=== PATIENT | female | born 1960 | race Caucasian/White ===

== ENCOUNTER → 2022-01-21 11:35 | Outpatient (CLI) | payer OTHER, SELFPAY ==
[2022-01-21 12:39] LABS: COVID19 -Nasal RAPID Negative (Negative)
== END ==
PROVIDERS: PCP Family Medicine; Visit Provider Surgery
DX: Z20.822 Contact with and (suspected) exposure to COVID-19 (principal); Z01.812 Encounter for preprocedural laboratory examination
CPT/HCPCS: 87635; C9803

== ENCOUNTER 2022-01-22 10:42 | Day surgery (SDC) | payer OTHER, SELFPAY ==
--- NOTE | 2022-01-22 | PATH_ITS ---
[facility] Accession Number: [id number] . 01 Material submitted: . PART A: colon - CECAL POLYP PART B: colon - SIGMOID COLON POLYP . 01 Clinical history: . SCREENING COLONOSCOPY . 01 Diagnosis: A. Cecum, Polyp, Biopsy: Sessile serrated adenoma. . B. Sigmoid Colon, Polyp, Biopsy: Tubular adenoma. Hyperplastic polyp. MRV 01/24/2022 1124 Local . 01 Electronically signed: . Jacque Castro MD, Pathologist NPI- [id number] . 01 Gross description: . Part A: CECAL POLYP: Received in formalin is 1 fragment(s) of weeks, soft tissue measuring 1.0 x 0.5 x 0.1 cm submitted entirely in 1 cassette(s) Part B: SIGMOID COLON POLYP: Received in formalin are multiple fragment(s) of weeks, soft tissue measuring 2.0 x 0.7 x 0.1 cm in aggregate submitted entirely in 1 cassette(s) /CPE 01/23/2022 0650 Local . 01 Pathologist provided ICD-10: D12.2, D12.5 . 01 CPT . 778377, 242179 Performed at: 01 [facility] [address] [place] [address] [address], [place], [place] [id number] MD Dewey Johnson MD Phone: [phone]
[2022-01-22 11:36] VITALS: BP 113/71; PULSE 94; RESP 20; TEMP 36.1; O2SAT 97; BMI 34.5
[2022-01-22] MEDS: LACTATED RINGERS 1,000 ML 150 ML IV (11:53)
--- NOTE | 2022-01-22 13:09 | PM.HP.1 ---
History of Present Illness History of Present Illness Chief complaint: SCREENING COLONOSCOPY Patient History Family & Social History Social History: household members spouse Tobacco & Substance use: Smoking Status Former smoker alcohol intake frequency holiday/special occasion Substance Use Type does not use Meds Home Medications and Allergies Home Medications Medication Instructions Recorded Confirmed Type atorvastatin 20 mg tablet 20 mg 1XD 01/22/22 01/22/22 History atorvastatin 20 mg tablet 20 mg PO DAILY 01/22/22 01/22/22 History bupropion HCl 150 mg 24 hr tablet, 150 mg PO 1XD 01/22/22 01/22/22 History extended release cetirizine 10 mg tablet 10 mg 1XD 01/22/22 01/22/22 History estradiol 1 mg tablet 1 mg 1XD 01/22/22 01/22/22 History levothyroxine 50 mcg tablet 50 mcg 1XD 01/22/22 01/22/22 History (Synthroid) levothyroxine 50 mcg tablet 50 mcg PO DAILY 01/22/22 01/22/22 History (Synthroid) losartan 100 25 tab 1XD 01/22/22 01/22/22 History mg-hydrochlorothiazide 25 mg tablet meloxicam 15 mg tablet 15 mg 1XD 01/22/22 01/22/22 History metformin 500 mg tablet,extended 1,000 mg PO 1-2XD 01/22/22 01/22/22 History release 24 hr omeprazole 20 mg capsule,delayed 20 mg PO DAILY 01/22/22 01/22/22 History release Allergies Allergy/AdvReac Type Severity Reaction Status Date / Time aspirin AdvReac Intermediate broken Verified 01/22/22 11:27 blood vessels lisinopril AdvReac Intermediate Cough Verified 01/22/22 11:27 gold AdvReac Intermediate Rash Uncoded 01/22/22 11:27 Review of Systems Review of Systems Narrative: Negative Exam Vital Signs (past 8 hours): - 01/22/22 11:36 Temperature 97 F L Pulse Rate 94 H Respiratory Rate 20 Blood Pressure 113/71 Pulse Oximetry 97 Oxygen Delivery Method Room Air Oxygen Delivery Method Room Air Narrative Exam Narrative: Awake alert and oriented x3, pupils equal round reactive to light, oropharynx clear, heart regular rate and rhythm, lungs clear to auscultation bilaterally, abdomen nontender and nondistended, extremities without edema, no gross neurologic deficits noted Assessment & Plan Assessment & Plan narrative: Colon cancer screening for colonoscopy Time Spent With Patient Critical Care time: I spent a total of [] minutes of critical care time on this patient's care today; this time is exclusive of procedural time.
--- NOTE | 2022-01-22 13:47 | PM.OP.COLON ---
Operative Date/Time/Diagnoses Date of procedure: 01/22/22 Procedure & Clinicians Study performed: Colonoscopy with snare polypectomy Indications: Colon cancer screening. Personal history of colon polyps. Family history of colon polyps. Last colonoscopy was done in 2012. Procedure Notes Procedure in detail: Prior to the procedure, history and physical was performed, and patient medications and allergies were reviewed. Preprocedure nursing history and assessment was reviewed. Patient identification and proposed procedure were verified by the physician and nurse in the procedure room. The physical status of the patient was reassessed after the procedure. After informed consent was obtained including risks, benefits, and alternatives, the scope was passed under direct vision. Throughout the procedure, the patient's blood pressure, pulse, and oxygen saturations were monitored continuously. The colonoscope was introduced through the anus and advanced to the cecum as identified by the appendiceal orifice and ileocecal valve. The patient tolerated the procedure well. Bowel prep was deemed adequate to detect polyps greater than 5 mm. GERALD and perianal examinations were unremarkable. Retroflexion in the rectum was unrevealing. A 4 mm sessile polyp was removed from the cecum using cold snare and retrieved. Two 4 mm sessile polyps were removed from the sigmoid colon using a cold snare, 1 of 2 polyps were retrieved Impression: Three 4 mm polyps removed from the sigmoid colon and cecum, partial retrieval Complications: other (EBL minimal. No complications) Post-procedure Plan for aftercare: Follow-up pathology results Repeat colonoscopy at a date to be determined based on pathology results Resume home medications Resume previous diet Patient has a contact number available for emergencies. The signs and symptoms of potential delayed complications were discussed with the patient. Return to normal activities tomorrow. Written discharge instructions were provided to the patient. Discharge home with escort
[2022-01-22 13:50] VITALS: BP 122/75; PULSE 94; RESP 19; TEMP 36; O2SAT 99
[2022-01-22 13:55] VITALS: BP 109/69; PULSE 92; RESP 19; O2SAT 100
[2022-01-22 14:00] VITALS: BP 117/80; PULSE 83; RESP 19; O2SAT 100
[2022-01-22 14:05] VITALS: BP 122/73; PULSE 77; RESP 15; O2SAT 99
[2022-01-22 14:08] VITALS: BP 112/66; PULSE 77; RESP 15; O2SAT 99
== END 2022-01-22 14:20 | disposition home or self-care (01) ==
PROVIDERS: PCP Nurse Practitioner Family; Referring Provider Internal Medicine; Visit Provider Internal Medicine
PROC: 0DJD8ZZ Inspection of Lower Intestinal Tract, Via Natural or Artificial Opening Endoscopic (ICD-10-PCS; CPT 45378; principal; 2022-01-22 12:30)
DX: Z12.11 Encounter for screening for malignant neoplasm of colon (principal); D12.0 Benign neoplasm of cecum; D12.5 Benign neoplasm of sigmoid colon; Z86.010 Personal history of colon polyps; Z83.71 Family history of colonic polyps; Z87.891 Personal history of nicotine dependence
CPT/HCPCS: 45385; J2704

== ENCOUNTER 2022-02-21 18:30 | Observation (INO) | payer OTHER, SELFPAY ==
[2022-02-21] VITALS (10 sets, daily range): BP systolic 119–146; BP diastolic 56–83; PULSE 103–116; RESP 17–28; TEMP 36.2–36.8; O2SAT 92–100; BMI 30.2; BMI 34.2
--- NOTE | 2022-02-21 18:51 | DI.RAD.S_ITS ---
PROCEDURE: XR CHEST 1V INDICATIONS: cough eval for PNA TECHNIQUE: One view of the chest was acquired. COMPARISON: None. FINDINGS: Surgical changes and devices: None. Lungs and pleura: Nodular opacity at the right lower lobe. No pleural effusions or pneumothorax. Mediastinum: Mediastinal contours appear normal. Heart size is normal. Bones and chest wall: No suspicious bony lesions. Suspect right 7th rib fracture. Overlying soft tissues appear unremarkable. IMPRESSION: Nodular opacity at the right lower lobe. Suspect pulmonary nodule. Called to [facility] ED. Report of outside CT chest. Comparison: CT chest 02/20/2022 at [facility]. Pulmonary nodules and mediastinal adenopathy on outside CT. Dictated by: Gustavo Caldera M.D. on 02/21/2022 at 20:15 Approved by: Gustavo Caldera M.D. on 02/21/2022 at 20:19
--- NOTE | 2022-02-21 19:06 | ED_ITS ---
HPI - GI Bleed General Chief complaint: GI Bleed Stated complaint: Abd bleeding, Hemoglobin of 8 per pt Time Seen by Provider: 02/21/22 18:51 Source: patient Mode of arrival: Family Vehicle Limitations: no limitations History of Present Illness HPI Narrative: Patient is a 61-year-old female who is here for evaluation of continued black colored stools, a cough and shortness of breath on exertion. She is had sympt oms for the past several days. She was recently seen at an outside emergency department where she had CT scans performed. She was found to have a hemoglobin of 8 per her report. There was concern about a GI bleed. She states that they had wanted to admit her to the hospital for a endoscopy/colonoscopy however the hospital was unable to provide those services she was discharged home with return precautions. Is also found during that exam that she had enlarged lymph nodes in her neck. She was diagnosed with parotitis. She was also told that she had lung nodules and a potential mass in her lung. She states that there are referrals underway for consultation to Hematology/Oncology. She comes to the emergency department today still having black-colored stools and now dyspnea on exertion and a cough. No fevers. No vomiting a blood. No abdominal pain. She denies drinking any alcohol. She does have a history of reflux disease and is on a PPI. She did take some anti-inflammatories recently for left shoulder pain is not currently on those medicines. She is never had a blood transfusion. No urinary symptoms. Related Data Home Medications Medication Instructions Recorded Confirmed atorvastatin 20 mg tablet 20 mg PO DAILY 01/22/22 02/21/22 bupropion HCl 150 mg 24 hr tablet, 150 mg PO 1XD 01/22/22 02/21/22 extended release cetirizine 10 mg tablet 10 mg PO 1XD 01/22/22 02/21/22 estradiol 1 mg tablet 1 mg PO 1XD 01/22/22 02/21/22 levothyroxine 50 mcg tablet 50 mcg PO DAILY 01/22/22 02/21/22 (Synthroid) losartan 100 25 tab PO 1XD 01/22/22 02/21/22 mg-hydrochlorothiazide 25 mg tablet meloxicam 15 mg tablet 15 mg PO 1XD 01/22/22 02/21/22 metformin 500 mg tablet,extended 1,000 mg PO 1-2XD 01/22/22 02/21/22 release 24 hr omeprazole 20 mg capsule,delayed 20 mg PO DAILY 01/22/22 02/21/22 release Allergies Allergy/AdvReac Type Severity Reaction Status Date / Time aspirin AdvReac Intermediate broken Verified 01/22/22 11:27 blood vessels lisinopril AdvReac Intermediate Cough Verified 01/22/22 11:27 gold AdvReac Intermediate Rash Uncoded 01/22/22 11:27 Review of Systems Review of Systems ROS Unobtainable: All systems reviewed & are unremarkable except as noted in HPI and below Patient History Medical History Diabetes Gastroesophageal reflux disease Hypertension Hypothyroid Social History household members: spouse Smoking Status: Former smoker alcohol intake: current Smoking Status: Former smoker alcohol intake frequency: holidays/special occasions only Substance Use Type: does not use Exam Initial Vital Signs Initial Vital Signs: Vital Signs Temperature 97.1 F L 02/21/22 18:36 Pulse Rate 116 H 02/21/22 18:36 Respiratory Rate 28 H 02/21/22 18:36 Blood Pressure 120/83 02/21/22 18:36 Pulse Oximetry 100 02/21/22 18:36 Oxygen Delivery Method 02/21/22 18:36 Const General: cooperative, comfortable and No ill appearing HENSD Head: normal to inspection and normocephalic Throat: posterior oropharynx normal Neck Lymphatic: lymphadenopathy Resp Effort & Inspection: normal respiratory effort Auscultation: clear to auscultation bilaterally Cardio Rate: tachycardic Rhythm: regular rhythm GI Inspection: normal to inspection Palpation: soft, No firm and No tender Skin General: no rashes or lesions noted Neuro General: patient alert, patient awake and moves all extremities Extrem General: normal to inspection and capillary refill normal Psych Appearance: grossly normal and well kempt Course Orders Ordered: ED Orders 02/21/22 19:00 Complete Blood Count AUTO DIFF Stat Comprehensive Metabolic Panel Stat Packed Cells Stat Troponin & CK Cardiac Panel Stat Type and Screen Stat 02/21/22 20:24 Consult to General Surgery Stat 02/21/22 20:57 EKG-12 Lead Stat Atorvastatin Calcium (Atorvastatin 20 Mg Tablet) 20 mg PO DAILY RILEY Bupropion HCl (Bupropion Xl 150 Mg Tab) 150 mg PO DAILY RILEY Dextrose (Dextrose 50 % In Water 25 Gm/50 Ml Syringe) 25 gm IV PRN PRN; Protocol PRN Reason: Hypoglycemia Estradiol (Estradiol 1 Mg Tablet) 1 mg PO DAILY [facility] Last Admin: 02/21/22 23:06 Dose: Not Given Documented By: DARIO Potassium Chloride/Sodium Chloride (Ns With Kcl 20 Meq) 1,000 mls @ 125 mls/hr IV CONT [facility] Last Admin: 02/21/22 23:05 Dose: 125 mls/hr Documented By: DARIO Insulin Human Lispro (Insulin Lispro 100 Unit/Ml 3ml Vial) 0 unit SUBCUT Q6H RILEY; Protocol Last Admin: 02/22/22 00:25 Dose: Not Given Documented By: DARIO Levothyroxine Sodium (Levothyroxine 50 Mcg Tablet) 50 mcg PO 0600 [facility] Loratadine (Loratadine 10 Mg Tablet) 10 mg PO DAILY [facility] Morphine Sulfate (Morphine 2 Mg/Ml Inj) 2 mg IV Q4H PRN PRN Reason: Breakthrough pain only (8-10) Ondansetron HCl (Ondansetron 4 Mg/2 Ml Inj) 4 mg IV Q8HR PRN PRN Reason: Nausea And Vomiting Discontinued Medications Sodium Chloride (Normal Saline 0.9%) 1,000 mls @ 125 mls/hr IV CONT [facility] Last Admin: 02/21/22 23:09 Dose: Not Given Documented By: DARIO Pantoprazole Sodium (Pantoprazole 40 Mg Vial) 80 mg IV NOW ONE Stop: 02/21/22 20:22 Last Admin: 02/21/22 20:45 Dose: 80 mg Documented By: ADALBERTO Vital Signs Vital signs: Vital Signs - 8 hr 02/21/22 20:00 02/21/22 20:00 02/21/22 20:30 Pulse Rate 108 H Blood Pressure 146/67 H 139/66 Pulse Oximetry 97 02/21/22 20:30 Pulse Rate 106 H Blood Pressure Pulse Oximetry 98 MDM - GI Bleed Lab Data Attestation: I reviewed the patient's lab results. Result diagrams: 02/21/22 19:00 02/21/22 19:00 Labs: Lab Results 02/21/22 02/21/22 02/21/22 Range/Units 19:00 19:00 19:00 WBC 10.9 (4.5-11.0) X10^3/uL RBC 2.55 L (4.0-5.2) X10^6/uL Hgb 7.5 L (12.0-16.0) g/dL Hct 22.3 L (36-46) % MCV 87.4 (80-100) fL MCH 29.5 (26-34) PG MCHC 33.8 (30-36) % RDW 13.1 (11.6-14.8) % Plt Count 731 H (150-400) X10^3/uL Neut % (Auto) 68.2 (50-75) % Lymph % (Auto) 13.9 L (25-40) % [place] % (Auto) 7.3 (3-14) % Eos % (Auto) 9.8 H (2-4) % Baso % (Auto) 0.8 (0-2) % Neut # (Auto) 7500 H (3750-1045) /uL Lymph # (Auto) 1500 (4351-3820) /uL [place] # (Auto) 800 (0-900) /uL Eos # (Auto) 1100 H (0-450) /uL Baso # (Auto) 100 (0-100) /uL Sodium 134 L (137-145) mmol/L Potassium 3.0 L (3.4-5.1) mmol/L Chloride 94 L (98-107) mmol/L Carbon Dioxide 25 (22-32) mmol/L BUN 18 H (7-17) mg/dL Creatinine 1.23 H (0.52-1.04) mg/dL Estimated GFR 50 L (>60) mL/min BUN/Creatinine Ratio 14.6 (6-22) Glucose 160 H (80-110) mg/dL Calcium 9.6 (8.4-10.2) mg/dL Total Bilirubin 0.3 (0.2-1.3) mg/dL AST 26 (14-36) IU/L ALT 14 (<35) IU/L Alkaline Phosphatase 64 (38-126) U/L Total Creatine Kinase (30-135) U/L CK-MB (CK-2) CK-MB (CK-2) Rel Index Troponin I (0.01-0.034) ng/mL Total Protein 7.5 (6.3-8.2) g/dL Albumin 4.4 (3.5-5.0) g/dL Globulin 3.1 (1.7-4.1) g/dL Albumin/Globulin Ratio 1.4 (1.0-2.8) Urine Color Urine Appearance Urine pH (4.5-8.0) Ur Specific Rough And Ready (1.000-1.035) Urine Protein (Negative) Urine Glucose (UA) (Negative) g/dL Urine Ketones (NEGATIVE) Urine Occult Blood (Negative) Urine Nitrate (Negative) Urine Bilirubin (NEGATIVE) Urine Urobilinogen (0.2) E.U./dL Ur Leukocyte Esterase (NEGATIVE) Urine RBC (0-5/HPF) Urine WBC (0-5/HPF) Ur Squamous Epith Cells (0-5/HPF) Ur Renal Epithelial Cell (0-1/HPF) Amorphous Sediment Urine Bacteria (None) Urine Yeast (None) Ur Culture Indicated? Blood Type O Positive Antibody Screen Negative Crossmatch See Detail 02/21/22 02/21/22 Range/Units 19:00 19:00 WBC (4.5-11.0) X10^3/uL RBC (4.0-5.2) X10^6/uL Hgb (12.0-16.0) g/dL Hct (36-46) % MCV (80-100) fL MCH (26-34) PG MCHC (30-36) % RDW (11.6-14.8) % Plt Count (150-400) X10^3/uL Neut % (Auto) (50-75) % Lymph % (Auto) (25-40) % Culberson % (Auto) (3-14) % Eos % (Auto) (2-4) % Baso % (Auto) (0-2) % Neut # (Auto) (6189-9286) /uL Lymph # (Auto) (6985-8635) /uL [place]on # (Auto) (0-900) /uL Eos # (Auto) (0-450) /uL Baso # (Auto) (0-100) /uL Sodium (137-145) mmol/L Potassium (3.4-5.1) mmol/L Chloride (98-107) mmol/L Carbon Dioxide (22-32) mmol/L BUN (7-17) mg/dL Creatinine (0.52-1.04) mg/dL Estimated GFR (>60) mL/min BUN/Creatinine Ratio (6-22) Glucose (80-110) mg/dL Calcium (8.4-10.2) mg/dL Total Bilirubin (0.2-1.3) mg/dL AST (14-36) IU/L ALT (<35) IU/L Alkaline Phosphatase (38-126) U/L Total Creatine Kinase 52 (30-135) U/L CK-MB (CK-2) TNP CK-MB (CK-2) Rel Index TNP Troponin I < 0.012 (0.01-0.034) ng/mL Total Protein (6.3-8.2) g/dL Albumin (3.5-5.0) g/dL Globulin (1.7-4.1) g/dL Albumin/Globulin Ratio (1.0-2.8) Urine Color Yellow Urine Appearance Clear Urine pH 7.0 (4.5-8.0) Ur Specific Rough And [place] <=1.005 (1.000-1.035) Urine Protein Negative (Negative) Urine Glucose (UA) Negative (Negative) g/dL Urine Ketones 1+ H (NEGATIVE) Urine Occult Blood Negative (Negative) Urine Nitrate Negative (Negative) Urine Bilirubin Negative (NEGATIVE) Urine Urobilinogen 0.2 (0.2) E.U./dL Ur Leukocyte Esterase Negative (NEGATIVE) Urine RBC None seen (0-5/HPF) Urine WBC 0-1/hpf (0-5/HPF) Ur Squamous Epith Cells 10-30 /hpf H (0-5/HPF) Ur Renal Epithelial Cell 0-1/hpf (0-1/HPF) Amorphous Sediment 1+ Urine Bacteria Occasional (0-1) (None) Urine Yeast 1-5/hpf H (None) Ur Culture Indicated? Cult not indicated Blood Type Antibody Screen Crossmatch Imaging Data Chest x-ray: Radiologist's Impression: [address] [address] XRay Report Signed Patient: Sonam Ireland MR#: [id number] : 1960 Acct:[id number] Age/Sex: 61 / F Date of Service: 02/21/22 Loc: ED Accession Number: [id number] ?? Procedure: XR chest 1V Ordering Provider: Lanker,Huber D.O. PROCEDURE:? XR CHEST 1V ? INDICATIONS:? cough eval for PNA ? TECHNIQUE:? One view of the chest was acquired.? ? COMPARISON:? None. ? FINDINGS:? ? Surgical changes and devices:? None.? ? Lungs and pleura:? Nodular opacity at the right lower lobe.? No pleural effusions or pneumothorax.? ? Mediastinum:? Mediastinal contours appear normal.? Heart size is normal.? ? Bones and chest wall:? No suspicious bony lesions.? Suspect right 7th rib fracture.? Overlying soft tissues appear unremarkable.? ? IMPRESSION:? Nodular opacity at the right lower lobe.? ? Suspect pulmonary nodule. ? Called to [facility] ED.? Report of outside CT chest. Comparison:? CT chest 02/20/2022 at [facility]. ? Pulmonary nodules and mediastinal adenopathy on outside CT.? ? Dictated by: Gustavo Caldera M.D. on 02/21/2022 at 20:15 ? ? Approved by: Gustavo Caldera M.D. on 02/21/2022 at 20:19?? ECG Data Attestation: I personally reviewed and interpreted this ECG as follows: Interpretation: Sinus tachycardia Ventricular rate 105 Normal QRS QTC [address] T wave changes MDM Narrative Medical decision making narrative: Patient has multiple issues. I did review the CT scans that were performed at the outside facility. She had CT scans of her head and chest and abdomen and pelvis. The CT scan of the chest abdomen pelvis shows enlarged lymph nodes common large mediastinum, multiple pulmonary nodules and lymphadenopathy in the head neck region. Was also lesion in her liver. This is very concerning for metastatic disease. I had a discussion with the patient and her regarding this. Initially I was unsure as to whether not they understood the severity this however they stated that they were told that this was potentially metastatic disease. There is a referral for her to follow-up with hematology oncology however this has not yet been established. I reiterated the importance of them following up with the specialist for the findings today. I do suspect that this could be the cause of some of her shortness of breath however patient is also anemic today. According to the patient's discharge paperwork her hemoglobin was 8. I do not have the rest of these labs to review. Her hemoglobin today is 7.5 with hematocrit of 22. She did have an episode of black tarry stool here in the ER. She stated that they tested her stool the outside facility and stated that she was positive for blood. Patient also somewhat tachycardic. Not hypotensive. Given her presenting symptoms today patient does require admission the hospital for further evaluation of this presumed GI bleed. She was started on Protonix. Had a discussion with her regarding the risks and benefits of a blood transfusion given her tachycardia and her dyspnea on exertion and the decrease in her hemoglobin I feel she would benefit from a transfusion. She expressed understanding and agreement with this. I did discuss case with Dr. Lang on-call with General surgery who will see the patient as an inpatient. Discussed the case with Dr. Wilson on-call for Internal Medicine who will admit for further evaluation and treatment. Discussed the need for admission with the patient they expressed understanding and agreement. Discharge Plan Departure Patient Disposition: Admitted As Inpatient Clinical Impression: Upper gastrointestinal hemorrhage, Symptomatic anemia, Pulmonary nodule Admit Date/Time: 02/21/22 20:32 Admit Provider: Naina Wilson
[2022-02-21 19:21] LABS: Add Manual Diff / Slide Review NO; Basophils Absolute Auto 100 /uL (0-100); Basophils Percent Auto 0.8 % (0-2); Eosinophils Absolute Auto 1100 /uL (0-450); Eosinophils Percent Auto 9.8 % (2-4); Hematocrit 22.3 % (36-46); Hemoglobin 7.5 g/dL (12.0-16.0); Lymphocytes Absolute Auto 1500 /uL (1100-4500); Lymphocytes Percent Auto 13.9 % (25-40); Mean Corpuscular HGB Conc 33.8 % (30-36); Mean Corpuscular Hemoglobin 29.5 PG (26-34); Mean Corpuscular Volume 87.4 fL (80-100); Monocytes Absolute Auto 800 /uL (0-900); Monocytes Percent Auto 7.3 % (3-14); Neutrophils Absolute Auto 7500 /uL (1500-7000); Neutrophils Percent Auto 68.2 % (50-75); Platelet Count 731 X10^3/uL (150-400); Red Blood Cell Count 2.55 X10^6/uL (4.0-5.2); Red Cell Distribution Width 13.1 % (11.6-14.8); White Blood Cell Count 10.9 X10^3/uL (4.5-11.0)
[2022-02-21 19:37] LABS: Alanine Aminotransferase 14 IU/L (<35); Albumin 4.4 g/dL (3.5-5.0); Albumin Globulin Ratio 1.4 (1.0-2.8); Alkaline Phosphatase 64 U/L (38-126); Aspartate Aminotransferase 26 IU/L (14-36); BUN Creatinine Ratio 14.6 (6-22); Bilirubin Total 0.3 mg/dL (0.2-1.3); Blood Urea Nitrogen 18 mg/dL (7-17); Calcium 9.6 mg/dL (8.4-10.2); Carbon Dioxide 25 mmol/L (22-32); Chloride 94 mmol/L (98-107); Creatine Kinase 52 U/L (30-135); Estimated Glomerular Filt Rate 50 mL/min (>60); Globulin 3.1 g/dL (1.7-4.1); Glucose 160 mg/dL (80-110); HEMOLYSIS < 15 (0-50); Sodium 134 mmol/L (137-145); Total Protein 7.5 g/dL (6.3-8.2)
[2022-02-21 19:48] LABS: Troponin I < 0.012 ng/mL (0.01-0.034)
[2022-02-21 20:41] LABS: Appearance Urine UA CLEAR; Bilirubin Urine UA NEGATIVE (NEGATIVE); Color Urine UA YELLOW; Glucose Urine UA NEGATIVE (Negative); Ketones Urine UA 1+ (NEGATIVE); Leukocyte Esterase Urine UA NEGATIVE (NEGATIVE); Nitrite Urine UA NEGATIVE (Negative); Occult Blood Urine UA NEGATIVE (Negative); Protein Urine UA NEGATIVE (Negative); Specific Gravity Urine UA <=1.005 (1.000-1.035); Urobilinogen Urine UA 0.2 E.U./dL (0.2)
[2022-02-21] MEDS: PANTOPRAZOLE 40 MG VIAL 80 MG IV (20:45)
[2022-02-21 20:56] LABS: RBC Urine None Seen (0-5/HPF); Squamous Epithelial Cell Urine 10-30 /HPF (0-5/HPF); WBC Urine 0-1/HPF (0-5/HPF)
[2022-02-21 20:57] LABS: Amorphous Sediment Urine 1+; Bacteria Urine Occasional (0-1); Culture Indicated Urine Cult Not Indicated; Renal Epithelial Cells Urine 0-1/HPF (0-1/HPF)
[2022-02-21 21:20] LABS: COVID19 -Nasal RAPID Negative (Negative)
--- NOTE | 2022-02-21 21:43 | PC.NURSE ---
2120 Consent form for blood products signed and on chart.
--- NOTE | 2022-02-21 22:11 | P.HP_ITS ---
History of Present Illness History of Present Illness Date Patient Seen: 02/21/22 Time Patient Seen: 22:11 Date of Onset of Symptoms: 02/03/22 Chief complaint: Abd pain/bleeding, Hemoglobin of 8 per pt Narrative: Patient is very pleasant 61-year-old female who is followed at the [facility] for her primary care. She is a history of non insulin-dependent type 2 diabetes, GERD, hypothyroidism and she presents to the emergency department with a 2 week progressive worsening history of shortness of breath with exertion, dizziness and this became more profound this week. She states that on Thursday she started having black diarrhea stools with some red in it and Thursday as well. She went to the emergency department due to the worsening dyspnea and fatigue and diarrhea stools and she was evaluated there and found to have guaiac-positive stools with anemia and CT scan was performed which showed mediastinal lymphadenopathy and suspicion for lymphoma. This would be a new diagnosis. They had intended to admit her to the hospital but apparently did not have a surgeon who could perform an EGD and so they arranged for her to have outpatient referrals for EGD as well as evaluation for possible lymphoma. She has appointment for further imaging and appointments with [facility]. She then spoke with her PCP today who recommended she go to the ER at [facility] today. She was noted to have a hemoglobin of 7.5 and had been 8 yesterday with melanotic stools that were guaiac positive and she was admitted to the hospital for further treatment of a presumed upper GI bleed. The patient does have a history of reflux for which she takes omeprazole but it really does not bother her except for sometimes at night if she eats too close to going to bed. She is had no worsening reflux. She does take meloxicam for her shoulder and she did take it last night. She is not had any abdominal pain. She is not had any chest pain. Past medical history: 1. Type 2 diabetes on metformin 2. GERD 3. Hypothyroidism 4. Postmenopausal on hormone replacement therapy 5. Anxiety and depression 6. Colonic polyps. Patient recently had a scope 01/22/2022 at [facility] which showed tubular adenoma. 7. History of tobacco abuse but quit smoking 5 years ago Allergies no known drug allergies Past surgical history: 1. Hammertoe 2. Total abdominal hysterectomy with unilateral salpingo-oophorectomy 3. Cataract surgery in 2017 Family history: Patient has a sister with pulmonary hypertension Mother at age 65 from small-cell lung cancer. She was a smoker Father from complications of diabetes. He had renal failure was diet on dialysis and at age 70 Health related behavior: No smoking, no alcohol and does not exercise Social history: Patient is . She is been for 42 years. They have no children. There from originally the [facility]. Her retired from the Review of systems: No palpitations. No chest pain. No wheezing. No recent URI symptoms. No abdominal pain. No worsening reflux. No fever chills or respiratory complaints . Twelve point review of systems is otherwise negative other than HPI Patient History Family & Social History Social History: household members spouse Prior Living Arrangements House Safety & Behavioral: Feels Safe in Current Yes Environment Been Physically Hurt or No Threatened By a Person Tobacco & Substance use: Tobacco type cigarettes Smoking Status Former smoker alcohol intake current alcohol intake frequency holiday/special occasion Substance Use Type does not use Meds Home Medications and Allergies Home Medications Medication Instructions Recorded Confirmed Type atorvastatin 20 mg tablet 20 mg PO DAILY 01/22/22 02/21/22 History bupropion HCl 150 mg 24 hr tablet, 150 mg PO 1XD 01/22/22 02/21/22 History extended release cetirizine 10 mg tablet 10 mg PO 1XD 01/22/22 02/21/22 History estradiol 1 mg tablet 1 mg PO 1XD 01/22/22 02/21/22 History levothyroxine 50 mcg tablet 50 mcg PO DAILY 01/22/22 02/21/22 History (Synthroid) losartan 100 25 tab PO 1XD 01/22/22 02/21/22 History mg-hydrochlorothiazide 25 mg tablet meloxicam 15 mg tablet 15 mg PO 1XD 01/22/22 02/21/22 History metformin 500 mg tablet,extended 1,000 mg PO 1-2XD 01/22/22 02/21/22 History release 24 hr omeprazole 20 mg capsule,delayed 20 mg PO DAILY 01/22/22 02/21/22 History release Allergies Allergy/AdvReac Type Severity Reaction Status Date / Time aspirin AdvReac Intermediate broken Verified 01/22/22 11:27 blood vessels lisinopril AdvReac Intermediate Cough Verified 01/22/22 11:27 gold AdvReac Intermediate Rash Uncoded 01/22/22 11:27 Exam Vital Signs (past 8 hours): - 02/21/22 18:36 02/21/22 18:49 02/21/22 19:00 Temperature 97.1 F L Pulse Rate 116 H 112 H Respiratory Rate 28 H Blood Pressure 120/83 Pulse Oximetry 100 92 99 Oxygen Delivery Method Room Air 02/21/22 19:08 02/21/22 19:08 02/21/22 19:30 Temperature Pulse Rate 113 H Respiratory Rate Blood Pressure 128/61 119/56 L Pulse Oximetry 98 Oxygen Delivery Method 02/21/22 19:30 02/21/22 20:00 02/21/22 20:00 Temperature Pulse Rate 111 H 108 H Respiratory Rate Blood Pressure 146/67 H Pulse Oximetry 97 97 Oxygen Delivery Method 02/21/22 20:30 02/21/22 20:30 02/21/22 21:00 Temperature Pulse Rate 106 H Respiratory Rate Blood Pressure 139/66 131/66 Pulse Oximetry 98 Oxygen Delivery Method 02/21/22 21:00 Temperature Pulse Rate 107 H Respiratory Rate Blood Pressure Pulse Oximetry 99 Oxygen Delivery Method Oxygen Delivery Method Room Air Narrative Exam Narrative: Patient is alert and oriented x3. She is a good historian and is resting in hospital bed in no acute distress. She does appear slightly pale with conjunctival pallor Head is normocephalic atraumatic Eyes ears nose oropharynx unremarkable. Mucous membranes moist and pink. Neck: Shows supraclavicular lymphadenopathy right greater than left. No obvious thyroid masses. No bruits no jugular venous distention Chest: Clear to auscultation without wheezes rhonchi or crackles Cor: Tachycardia in the low 1 teens with normal rhythm. Distant S1-S2 Abdomen: Positive bowel sounds, soft, nontender, nondistended, no hepatosplenomegaly. No guarding no rebound no midepigastric tenderness Extremities: No edema pulses intact Neurologic exam nonfocal Skin no rashes Objective Labs Result Diagrams: 02/21/22 19:00 02/21/22 19:00 Labs: Laboratory Results - last 24 hr 02/21/22 02/21/22 02/21/22 19:00 19:00 19:00 WBC 10.9 RBC 2.55 L Hgb 7.5 L Hct 22.3 L MCV 87.4 MCH 29.5 MCHC 33.8 RDW 13.1 Plt Count 731 H Neut % (Auto) 68.2 Lymph % (Auto) 13.9 L [place] % (Auto) 7.3 Eos % (Auto) 9.8 H Baso % (Auto) 0.8 Neut # (Auto) 7500 H Lymph # (Auto) 1500 [place] # (Auto) 800 Eos # (Auto) 1100 H Baso # (Auto) 100 Sodium 134 L Potassium 3.0 L Chloride 94 L Carbon Dioxide 25 BUN 18 H Creatinine 1.23 H Estimated GFR 50 L BUN/Creatinine Ratio 14.6 Glucose 160 H Calcium 9.6 Total Bilirubin 0.3 AST 26 ALT 14 Alkaline Phosphatase 64 Total Creatine Kinase CK-MB (CK-2) CK-MB (CK-2) Rel Index Troponin I Total Protein 7.5 Albumin 4.4 Globulin 3.1 Albumin/Globulin Ratio 1.4 Urine Color Urine Appearance Urine pH Ur Specific [place] Urine Protein Urine Glucose (UA) Urine Ketones Urine Occult Blood Urine Nitrate Urine Bilirubin Urine Urobilinogen Ur Leukocyte Esterase Urine RBC Urine WBC Ur Squamous Epith Cells Ur Renal Epithelial Cell Amorphous Sediment Urine Bacteria Urine Yeast Ur Culture Indicated? SARS-CoV-2 (PCR) Blood Type O Positive Antibody Screen Negative Crossmatch See Detail 02/21/22 02/21/22 02/21/22 19:00 19:00 20:55 WBC RBC Hgb Hct MCV MCH MCHC RDW Plt Count Neut % (Auto) Lymph % (Auto) [place] % (Auto) Eos % (Auto) Baso % (Auto) Neut # (Auto) Lymph # (Auto) [place] # (Auto) Eos # (Auto) Baso # (Auto) Sodium Potassium Chloride Carbon Dioxide BUN Creatinine Estimated GFR BUN/Creatinine Ratio Glucose Calcium Total Bilirubin AST ALT Alkaline Phosphatase Total Creatine Kinase 52 CK-MB (CK-2) TNP CK-MB (CK-2) Rel Index TNP Troponin I < 0.012 Total Protein Albumin Globulin Albumin/Globulin Ratio Urine Color Yellow Urine Appearance Clear Urine pH 7.0 Ur Specific [place] <=1.005 Urine Protein Negative Urine Glucose (UA) Negative Urine Ketones 1+ H Urine Occult Blood Negative Urine Nitrate Negative Urine Bilirubin Negative Urine Urobilinogen 0.2 Ur Leukocyte Esterase Negative Urine RBC None seen Urine WBC 0-1/hpf Ur Squamous Epith Cells 10-30 /hpf H Ur Renal Epithelial Cell 0-1/hpf Amorphous Sediment 1+ Urine Bacteria Occasional (0-1) Urine Yeast 1-5/hpf H Ur Culture Indicated? Cult not indicated SARS-CoV-2 (PCR) Negative Blood Type Antibody Screen Crossmatch Assessment & Plan Assessment & Plan narrative: 61-year-old female with presumed upper GI bleed and associated tachycardia and dyspnea on exertion Assessment 1. Upper GI bleed, presumed. Suspect in part related to meloxicam. Plan: Will admit to the hospital. General surgery has been consulted and plan for endoscopy in a.m.. Patient has received Protonix 80 mg in the emergency d epartment. We will transfuse 1 unit of packed red blood cells and recheck H&H. We will then provide IV fluids. We will hold any NSAIDs or meloxicam. Assessment 2. New diagnosis of mediastinal lymphadenopathy with concern for lymphoma without acute issues Plan: We will continue to monitor and will proceed with workup as outpatient which is already been initiated Assessment 3. Acute kidney disease suspect related to upper GI bleed Plan: We will hold metformin as patient had a CT scan with contrast. We will hold her blood pressure medicine a diuretic at this time. We will give IV fluids and we will reassess in a.m.. Assessment 4. Type 2 diabetes, [id number] Plan: We will hold metformin. We will do CBGS q.a.c. and q.h.s. and do sliding scale insulin Assessment 5. Hypothyroidism Plan: Will restart tomorrow. Assessment 6. Hypertension Plan: Will hold blood pressure medications until after upper endoscopy Hyperlipidemia Plan: Will continue atorvastatin Assessment 8. Anxiety and depression, currently stable Plan: Will restart bupropion 1 she is taking p.o. without difficulty Assessment 9. DVT prophylaxis. Lovenox contraindicated at this time Plan: Will continue with bilateral SCDs. 60 minutes was spent with the patient and discussing with ER, nursing, meeting with patient and reviewing her chart and examination and formulating a plan and documentation. Time Spent With Patient Critical Care time: I spent a total of [] minutes of critical care time on this patient's care today; this time is exclusive of procedural time. Quality VTE Deep Vein Thrombosis/Pulmonary Embolism Present on Admission: No
[2022-02-21] MEDS: KCL 20 MEQ IN NS 1,000 ML 125 MEQ IV (23:05)
[2022-02-22] VITALS (13 sets, daily range): BP systolic 118–146; BP diastolic 54–72; PULSE 96–106; RESP 14–25; TEMP 36.3–36.9; O2SAT 96–100
--- NOTE | 2022-02-22 | PATH_ITS ---
[facility] Accession Number: [id number] . 01 Material submitted: . duodenum - DUODENAL BIOPSY . 01 Diagnosis: Duodenum, Biopsy: Duodenal mucosa with no diagnostic abnormality. Negative for active inflammation, features of sprue, dysplasia, or malignancy. [facility] 02/27/2022 1122 Local . 01 Electronically signed: . Jacque Castro MD, Pathologist NPI- [id number] . 01 Gross description: . DUODENAL BIOPSY: Received in formalin is 1 fragment(s) of weeks, soft tissue measuring 0.3 x 0.3 x 0.3 cm submitted entirely in 1 cassette(s) /QBJ 02/26/2022 0457 Local . 01 Pathologist provided ICD-10: R10.9 . 01 CPT . 717571 Specimen Comment: A courtesy copy of this report has been sent to [phone] Performed at: 01 [facility] [address] [place] [address], [place], [place] [id number] MD Dewey Johnson MD Phone: [phone]
[2022-02-22] MEDS: LEVOTHYROXINE 50 MCG TABLET PO (05:29)
[2022-02-22 06:11] LABS: Add Manual Diff / Slide Review NO; Basophils Absolute Auto 100 /uL (0-100); Basophils Percent Auto 0.9 % (0-2); Eosinophils Absolute Auto 1100 /uL (0-450); Hematocrit 22.8 % (36-46); Hemoglobin 7.8 g/dL (12.0-16.0); Lymphocytes Absolute Auto 1300 /uL (1100-4500); Lymphocytes Percent Auto 13.3 % (25-40); Mean Corpuscular HGB Conc 34.3 % (30-36); Mean Corpuscular Hemoglobin 29.9 PG (26-34); Mean Corpuscular Volume 87.1 fL (80-100); Monocytes Absolute Auto 1000 /uL (0-900); Monocytes Percent Auto 9.9 % (3-14); Neutrophils Absolute Auto 6400 /uL (1500-7000); Neutrophils Percent Auto 64.9 % (50-75); Platelet Count 621 X10^3/uL (150-400); Red Blood Cell Count 2.61 X10^6/uL (4.0-5.2); Red Cell Distribution Width 13.4 % (11.6-14.8); White Blood Cell Count 9.9 X10^3/uL (4.5-11.0)
[2022-02-22 06:19] LABS: Alanine Aminotransferase 11 IU/L (<35); Albumin 3.9 g/dL (3.5-5.0); Albumin Globulin Ratio 1.4 (1.0-2.8); Alkaline Phosphatase 50 U/L (38-126); Aspartate Aminotransferase 19 IU/L (14-36); BUN Creatinine Ratio 14.9 (6-22); Bilirubin Total 0.6 mg/dL (0.2-1.3); Blood Urea Nitrogen 14 mg/dL (7-17); Calcium 8.4 mg/dL (8.4-10.2); Carbon Dioxide 24 mmol/L (22-32); Chloride 102 mmol/L (98-107); Estimated Glomerular Filt Rate > 60 mL/min (>60); Globulin 2.7 g/dL (1.7-4.1); Glucose 120 mg/dL (80-110); HEMOLYSIS < 15 (0-50); Potassium 3.5 mmol/L (3.4-5.1); Sodium 137 mmol/L (137-145); Total Protein 6.6 g/dL (6.3-8.2)
--- NOTE | 2022-02-22 07:49 | PM.CALLCOV.1 ---
Call Coverage Note Note Date of Patient Contact: 02/22/22 Time of Patient Contact: 07:50 Narrative of Care Provided: Full consult note to follow 61F hemodynamically stable with UGI EGD this AM.
[2022-02-22] MEDS: estradioL 1 MG TABLET PO (09:01)
[2022-02-22] MEDS: KCL 20 MEQ IN NS 1,000 ML 125 MEQ IV (09:08)
--- NOTE | 2022-02-22 11:19 | PM.PN.1 ---
Subjective Subjective Date Patient Seen: 02/22/22 Interval history: 61-year-old female with type 2 diabetes, GERD, hypothyroidism who was admitted last night with a presumed upper GI bleed, acute blood loss anemia, DELMER, and recent CT scan with bilateral lung nodules and supraclavicular and mediastinal lymphadenopathy concerning for malignancy. Patient reports she is feeling reasonably well this morning. She denies any abdominal pain recently. She has not had a bowel movement since admission. Prior to admission, she was having black tarry stools. No nausea or vomiting. Exam Vital Signs (past 8 hours): - 02/22/22 08:32 Temperature 98.2 F Pulse Rate 101 H Respiratory Rate 16 Blood Pressure 119/58 L Pulse Oximetry 98 Oxygen Flow Rate 0 Oxygen Delivery Method Room Air Oxygen Flow Rate 0 Narrative Exam Narrative: GEN: Alert and oriented x 3, NAD HEENT:NC, Face symmetric CHEST: Respiratory excursions symmetric, CTAB CV: RRR, no M/R/G ABD: Soft, NT/ND, BT present in all 4 quadrants, no organomegaly or masses EXTR: warm, well perfused, no C/C/E SKIN: warm and dry, no rash NEURO: Alert and oriented x 3, nonfocal Objective Labs Result Diagrams: 02/22/22 05:25 02/22/22 05:25 Labs: Laboratory Results - last 24 hr 02/21/22 02/21/22 02/21/22 19:00 19:00 19:00 WBC 10.9 RBC 2.55 L Hgb 7.5 L Hct 22.3 L MCV 87.4 MCH 29.5 MCHC 33.8 RDW 13.1 Plt Count 731 H Neut % (Auto) 68.2 Lymph % (Auto) 13.9 L [place] % (Auto) 7.3 Eos % (Auto) 9.8 H Baso % (Auto) 0.8 Neut # (Auto) 7500 H Lymph # (Auto) 1500 [place] # (Auto) 800 Eos # (Auto) 1100 H Baso # (Auto) 100 Sodium 134 L Potassium 3.0 L Chloride 94 L Carbon Dioxide 25 BUN 18 H Creatinine 1.23 H Estimated GFR 50 L BUN/Creatinine Ratio 14.6 Glucose 160 H Calcium 9.6 Total Bilirubin 0.3 AST 26 ALT 14 Alkaline Phosphatase 64 Total Creatine Kinase CK-MB (CK-2) CK-MB (CK-2) Rel Index Troponin I Total Protein 7.5 Albumin 4.4 Globulin 3.1 Albumin/Globulin Ratio 1.4 Urine Color Urine Appearance Urine pH Ur Specific [place] Urine Protein Urine Glucose (UA) Urine Ketones Urine Occult Blood Urine Nitrate Urine Bilirubin Urine Urobilinogen Ur Leukocyte Esterase Urine RBC Urine WBC Ur Squamous Epith Cells Ur Renal Epithelial Cell Amorphous Sediment Urine Bacteria Urine Yeast Ur Culture Indicated? SARS-CoV-2 (PCR) Blood Type O Positive Antibody Screen Negative Crossmatch See Detail 02/21/22 02/21/22 02/21/22 19:00 19:00 20:55 WBC RBC Hgb Hct MCV MCH MCHC RDW Plt Count Neut % (Auto) Lymph % (Auto) [place] % (Auto) Eos % (Auto) Baso % (Auto) Neut # (Auto) Lymph # (Auto) [place] # (Auto) Eos # (Auto) Baso # (Auto) Sodium Potassium Chloride Carbon Dioxide BUN Creatinine Estimated GFR BUN/Creatinine Ratio Glucose Calcium Total Bilirubin AST ALT Alkaline Phosphatase Total Creatine Kinase 52 CK-MB (CK-2) TNP CK-MB (CK-2) Rel Index TNP Troponin I < 0.012 Total Protein Albumin Globulin Albumin/Globulin Ratio Urine Color Yellow Urine Appearance Clear Urine pH 7.0 Ur Specific [place] <=1.005 Urine Protein Negative Urine Glucose (UA) Negative Urine Ketones 1+ H Urine Occult Blood Negative Urine Nitrate Negative Urine Bilirubin Negative Urine Urobilinogen 0.2 Ur Leukocyte Esterase Negative Urine RBC None seen Urine WBC 0-1/hpf Ur Squamous Epith Cells 10-30 /hpf H Ur Renal Epithelial Cell 0-1/hpf Amorphous Sediment 1+ Urine Bacteria Occasional (0-1) Urine Yeast 1-5/hpf H Ur Culture Indicated? Cult not indicated SARS-CoV-2 (PCR) Negative Blood Type Antibody Screen Crossmatch 02/22/22 02/22/22 05:25 05:25 WBC 9.9 RBC 2.61 L Hgb 7.8 L Hct 22.8 L MCV 87.1 MCH 29.9 MCHC 34.3 RDW 13.4 Plt Count 621 H Neut % (Auto) 64.9 Lymph % (Auto) 13.3 L [place] % (Auto) 9.9 Eos % (Auto) 11.0 H Baso % (Auto) 0.9 Neut # (Auto) 6400 Lymph # (Auto) 1300 [place] # (Auto) 1000 H Eos # (Auto) 1100 H Baso # (Auto) 100 Sodium 137 Potassium 3.5 Chloride 102 Carbon Dioxide 24 BUN 14 Creatinine 0.94 Estimated GFR > 60 BUN/Creatinine Ratio 14.9 Glucose 120 H Calcium 8.4 Total Bilirubin 0.6 AST 19 ALT 11 Alkaline Phosphatase 50 Total Creatine Kinase CK-MB (CK-2) CK-MB (CK-2) Rel Index Troponin I Total Protein 6.6 Albumin 3.9 Globulin 2.7 Albumin/Globulin Ratio 1.4 Urine Color Urine Appearance Urine pH Ur Specific [place] Urine Protein Urine Glucose (UA) Urine Ketones Urine Occult Blood Urine Nitrate Urine Bilirubin Urine Urobilinogen Ur Leukocyte Esterase Urine RBC Urine WBC Ur Squamous Epith Cells Ur Renal Epithelial Cell Amorphous Sediment Urine Bacteria Urine Yeast Ur Culture Indicated? SARS-CoV-2 (PCR) Blood Type Antibody Screen Crossmatch [facility] Medical History Diabetes Gastroesophageal reflux disease Hypertension Hypothyroid Social History household members: spouse Smoking Status: Former smoker alcohol intake: current Assessment & Plan Assessment & Plan narrative: 1. Presumed upper GI bleed Patient has been on meloxicam on an outpatient basis. Continue Protonix b.i.d.. Appreciate general surgery consultation. Plan for an EGD today. Patient did have a colonoscopy approximately 1 month ago, which revealed polyps. She denies any ongoing bleeding or complications from the colonoscopy. 2. Acute blood loss anemia Patient received 1 unit of packed red blood cells. Hemoglobin is stable at 7.8, slightly improved from 7.5 on admission. 3. DELMER 1.23 creatinine on admission, now improved at 0.94. 4. Type 2 diabetes Treated with metformin. She has been NPO. Blood sugars are well controlled in the low 100s. 5. Multiple bilateral pulmonary nodules including extensive mediastinal and supraclavicular lymphadenopathy Seen on Chest CT done 02/20. Negative abdominal CT. Negative CT head except for mild enlargement of bilateral parotid glands. Discussed with patient's spouse says she was taken down to EGD during my visit. He reports that she is being set up at [facility] for oncologic care. Regard to bilateral parotid gland enlargement, her the patient's PCP has ordered follow-up imaging. 6. Hypothyroidism Continue levothyroxine. 7. Hypertension She is on losartan/HCTZ at baseline. This is been held in the setting of her GI bleed. Blood pressures are normotensive. 8. Hyperlipidemia Continue atorvastatin 9. Depression/anxiety Continue bupropion 10. Suspected right 7th rib fracture On admission CXR/ not seen on CT of chest from 02/20. 11. Left lateral 10th rib deformity Possibly d/t old trauma vs. disease related Code status Full Prophylaxis Chemical DVT prophylaxis contraindicated in the setting of GI bleeding Disposition Pending Time Spent With Patient Critical Care time: I spent a total of [] minutes of critical care time on this patient's care today; this time is exclusive of procedural time. Quality VTE Deep Vein Thrombosis/Pulmonary Embolism Present on Admission: No
--- NOTE | 2022-02-22 11:20 | P.CONS_ITS ---
History of Present Illness Consult details Date Patient Seen: 02/22/22 Time Patient Seen: 11:20 Chief complaint: Abd pain/bleeding, Hemoglobin of 8 per pt Narrative: 61-year-old woman admitted to the hospital for a GI bleed. Over the past week she has developed black tarry stool and associated lightheadedness. She is not on anticoagulation. Admission to [facility] she had mild tachycardia, initial hematocrit 22. No hematemesis or abdominal pain. No history of peptic ulcer disease. She has been recently taking Aleve secondary to new cervical pain. Recent CT demonstrates extensive hilar lymphadenopathy as well as bilateral cervical lymphadenopathy concerning for lymphoma. Of note she had a recent colonoscopy within the past several months which was unremarkable. Meds Home Medications and Allergies Home Medications Medication Instructions Recorded Confirmed Type atorvastatin 20 mg tablet 20 mg PO DAILY 01/22/22 02/21/22 History bupropion HCl 150 mg 24 hr tablet, 150 mg PO 1XD 01/22/22 02/21/22 History extended release cetirizine 10 mg tablet 10 mg PO 1XD 01/22/22 02/21/22 History estradiol 1 mg tablet 1 mg PO 1XD 01/22/22 02/21/22 History levothyroxine 50 mcg tablet 50 mcg PO DAILY 01/22/22 02/21/22 History (Synthroid) losartan 100 25 tab PO 1XD 01/22/22 02/21/22 History mg-hydrochlorothiazide 25 mg tablet meloxicam 15 mg tablet 15 mg PO 1XD 01/22/22 02/21/22 History metformin 500 mg tablet,extended 1,000 mg PO 1-2XD 01/22/22 02/21/22 History release 24 hr omeprazole 20 mg capsule,delayed 20 mg PO DAILY 01/22/22 02/21/22 History release Allergies Allergy/AdvReac Type Severity Reaction Status Date / Time aspirin AdvReac Intermediate broken Verified 01/22/22 11:27 blood vessels lisinopril AdvReac Intermediate Cough Verified 01/22/22 11:27 gold AdvReac Intermediate Rash Uncoded 01/22/22 11:27 Exam Vital Signs (past 8 hours): - 02/22/22 08:32 Temperature 98.2 F Pulse Rate 101 H Respiratory Rate 16 Blood Pressure 119/58 L Pulse Oximetry 98 Oxygen Flow Rate 0 Oxygen Delivery Method Room Air Oxygen Flow Rate 0 Narrative Exam Narrative: General adult woman alert oriented no acute distress Chest nonlabored respirations with cough Abdomen soft nontender nondistended Objective Labs Result Diagrams: 02/22/22 05:25 02/22/22 05:25 Labs: Laboratory Results - last 24 hr 02/21/22 02/21/22 02/21/22 19:00 19:00 19:00 WBC 10.9 RBC 2.55 L Hgb 7.5 L Hct 22.3 L MCV 87.4 MCH 29.5 MCHC 33.8 RDW 13.1 Plt Count 731 H Neut % (Auto) 68.2 Lymph % (Auto) 13.9 L [place] % (Auto) 7.3 Eos % (Auto) 9.8 H Baso % (Auto) 0.8 Neut # (Auto) 7500 H Lymph # (Auto) 1500 [place] # (Auto) 800 Eos # (Auto) 1100 H Baso # (Auto) 100 Sodium 134 L Potassium 3.0 L Chloride 94 L Carbon Dioxide 25 BUN 18 H Creatinine 1.23 H Estimated GFR 50 L BUN/Creatinine Ratio 14.6 Glucose 160 H Calcium 9.6 Total Bilirubin 0.3 AST 26 ALT 14 Alkaline Phosphatase 64 Total Creatine Kinase CK-MB (CK-2) CK-MB (CK-2) Rel Index Troponin I Total Protein 7.5 Albumin 4.4 Globulin 3.1 Albumin/Globulin Ratio 1.4 Urine Color Urine Appearance Urine pH Ur Specific [place] Urine Protein Urine Glucose (UA) Urine Ketones Urine Occult Blood Urine Nitrate Urine Bilirubin Urine Urobilinogen Ur Leukocyte Esterase Urine RBC Urine WBC Ur Squamous Epith Cells Ur Renal Epithelial Cell Amorphous Sediment Urine Bacteria Urine Yeast Ur Culture Indicated? SARS-CoV-2 (PCR) Blood Type O Positive Antibody Screen Negative Crossmatch See Detail 02/21/22 02/21/22 02/21/22 19:00 19:00 20:55 WBC RBC Hgb Hct MCV MCH MCHC RDW Plt Count Neut % (Auto) Lymph % (Auto) [place] % (Auto) Eos % (Auto) Baso % (Auto) Neut # (Auto) Lymph # (Auto) [place] # (Auto) Eos # (Auto) Baso # (Auto) Sodium Potassium Chloride Carbon Dioxide BUN Creatinine Estimated GFR BUN/Creatinine Ratio Glucose Calcium Total Bilirubin AST ALT Alkaline Phosphatase Total Creatine Kinase 52 CK-MB (CK-2) TNP CK-MB (CK-2) Rel Index TNP Troponin I < 0.012 Total Protein Albumin Globulin Albumin/Globulin Ratio Urine Color Yellow Urine Appearance Clear Urine pH 7.0 Ur Specific [place] <=1.005 Urine Protein Negative Urine Glucose (UA) Negative Urine Ketones 1+ H Urine Occult Blood Negative Urine Nitrate Negative Urine Bilirubin Negative Urine Urobilinogen 0.2 Ur Leukocyte Esterase Negative Urine RBC None seen Urine WBC 0-1/hpf Ur Squamous Epith Cells 10-30 /hpf H Ur Renal Epithelial Cell 0-1/hpf Amorphous Sediment 1+ Urine Bacteria Occasional (0-1) Urine Yeast 1-5/hpf H Ur Culture Indicated? Cult not indicated SARS-CoV-2 (PCR) Negative Blood Type Antibody Screen Crossmatch 02/22/22 02/22/22 05:25 05:25 WBC 9.9 RBC 2.61 L Hgb 7.8 L Hct 22.8 L MCV 87.1 MCH 29.9 MCHC 34.3 RDW 13.4 Plt Count 621 H Neut % (Auto) 64.9 Lymph % (Auto) 13.3 L [place] % (Auto) 9.9 Eos % (Auto) 11.0 H Baso % (Auto) 0.9 Neut # (Auto) 6400 Lymph # (Auto) 1300 [place] # (Auto) 1000 H Eos # (Auto) 1100 H Baso # (Auto) 100 Sodium 137 Potassium 3.5 Chloride 102 Carbon Dioxide 24 BUN 14 Creatinine 0.94 Estimated GFR > 60 BUN/Creatinine Ratio 14.9 Glucose 120 H Calcium 8.4 Total Bilirubin 0.6 AST 19 ALT 11 Alkaline Phosphatase 50 Total Creatine Kinase CK-MB (CK-2) CK-MB (CK-2) Rel Index Troponin I Total Protein 6.6 Albumin 3.9 Globulin 2.7 Albumin/Globulin Ratio 1.4 Urine Color Urine Appearance Urine pH Ur Specific [place] Urine Protein Urine Glucose (UA) Urine Ketones Urine Occult Blood Urine Nitrate Urine Bilirubin Urine Urobilinogen Ur Leukocyte Esterase Urine RBC Urine WBC Ur Squamous Epith Cells Ur Renal Epithelial Cell Amorphous Sediment Urine Bacteria Urine Yeast Ur Culture Indicated? SARS-CoV-2 (PCR) Blood Type Antibody Screen Crossmatch [facility] Medical History Diabetes Gastroesophageal reflux disease Hypertension Hypothyroid Social History household members: spouse Tobacco & Substance Use Smoking Status: Former smoker alcohol intake: current Assessment & Plan Assessment and plan (1) Upper gastrointestinal hemorrhage: Status: Acute Assessment & Plan narrative: 61-year-old woman admitted with anemia secondary to upper GI bleed. Hemodyna mically stable. Esophagoduodenoscopy indicated for diagnostic and therapeutic purpose. Overview of the procedure was discussed with the patient. Procedural risks including bleeding, missed diagnosis, intestinal perforation, anesthetic complication and were discussed. Her questions have been answered and she is in agreement with this plan. Time Spent With Patient Critical Care time: I spent a total of [] minutes of critical care time on this patient's care today; this time is exclusive of procedural time.
--- NOTE | 2022-02-22 11:21 | PC.NURSE ---
Addendum entered by Lisa Medina R.N. 02/22/22 18:43: Patient down to egd around 1130 and back around 1300. She has a swollen l.lymphnode behind her ear, patient complained of pain 11/01. Vicodin ordered, given and patient is snoozing soundly. Original Note: Patient denies pain or dicomfort. She has been up to the bathroom with sba. Denies dizziness at this time and has no bowel movement at this time. She will be going down for her EGD soon. at bedside.
[2022-02-22] MEDS: LACTATED RINGERS 1,000 ML 84 ML IV ×2 (11:45→21:03)
--- NOTE | 2022-02-22 12:19 | PM.OP.EGD ---
Operative Date/Time/Diagnoses Date of procedure: 02/22/22 Time of procedure: 12:19 Pre-op diagnosis: GI bleed Post-op diagnosis: other (Duodenitis) Procedure & Clinicians Study performed: Esophagoduodenoscopy Same procedure as scheduled: Yes Indications: GI bleed upper Surgeon: Colin Lang Procedure Notes Procedure in detail: Patient placed in left lateral decubitus position. Time out was performed. Procedural sedation was administered with Versed and Fentanyl. A bite block was placed. the scope was inserted into the mouth and advanced through the esophagus and into the stomach. The pylorus was intubated. Within the 2nd portion of the duodenum there was an area of mild duodenitis there was no distinct ulcer or active bleeding. Biopsy of the duodenum here was performed with forceps.. Within the stomach there were no ulcers, or gastritis. The scope was withdrawn into the esophagus the Z line was seen at 35 cm from the incisions. There was no Colon's esophagitis or masses or strictures. Stomach was desufflated and scope removed. Patient tolerated procedure well. Specimen(s): other (Duodenum) Complications: none Impression: Duodenitis Post-procedure Plan for aftercare: Appropriate for discharge home on PPI Disposition: Acute Care
[2022-02-22] MEDS: LORATADINE 10 MG TABLET PO (13:43)
[2022-02-22] MEDS: buPROPion XL 150 MG TAB PO (13:43)
[2022-02-22] MEDS: ATORVASTATIN 20 MG TABLET PO (13:43)
[2022-02-22] MEDS: BENZOCAINE/MENTHOL 1 LOZ PKT 1 EACH PO ×2 (13:44→20:02)
--- NOTE | 2022-02-22 14:56 | CM.DANOTE ---
Initial DCP Assessment Note Pt is a 61 yo female, resident of [place], presents with abd pain and bleeding, EGD today shows Duodenitis. Patient will likely DC home w/spouse with close outpatient f/u recommended PCP: [facility] Payer: Cameron Davila Reviewed chart, met w/patient and spouse to introduce self and role. Spouse had numerous questions about insurer and the expected cost of this hospitalization- to which this [employer] referred them back to their insurance plan and to billing dept, open Thursday. Patient/spouse appreciative for the conversation, deny addtl needs from this [employer] No barriers identified at this time to patient's safe discharge home w/family to assist; close outpatient f/u recommended. CINDY Martinez Discharge Planning/Care Management CM Discharge Assessment Start: 02/22/22 14:55 Freq: Status: Active Protocol: Document 02/22/22 14:55 NORMA (Rec: 02/22/22 14:56 NORMA [id number]) Discharge Planning Assessment Assigned [employer] Director CINDY Mccarthy DPOA/Assigned Designee Name Joe Ireland, spouse Contact Information [phone] Advance Directives? No History Provided By Patient,Medical Record Prior Living Arrangements House Household Members spouse Type of transporation used prior to Drives own vehicle admit Independent with ADL's Yes Is patient alert and oriented? Yes Barriers to Discharge No Comment Home w/spouse and close outpatient f/u expected Discharge Plan Home Transportation Arrangement family Referrals Initiated None needed
[2022-02-22] MEDS: HYDROCODONE/ACET 5/325 TABLET 1 TAB PO ×2 (18:01→21:17)
[2022-02-22] MEDS: PANTOPRAZOLE 40 MG VIAL IV (21:06)
[2022-02-23] MEDS: BENZOCAINE/MENTHOL 1 LOZ PKT 1 EACH PO ×2 (04:00→11:07)
[2022-02-23 04:14] VITALS: BP 143/72; PULSE 100; RESP 16; TEMP 36.4; O2SAT 97
[2022-02-23] MEDS: LEVOTHYROXINE 50 MCG TABLET PO (06:13)
[2022-02-23 08:00] VITALS: BP 115/77; PULSE 99; RESP 16; TEMP 36.6; O2SAT 96
[2022-02-23] MEDS: estradioL 1 MG TABLET PO (08:14)
[2022-02-23] MEDS: PANTOPRAZOLE 40 MG VIAL IV (08:14)
[2022-02-23] MEDS: buPROPion XL 150 MG TAB PO (08:14)
[2022-02-23] MEDS: ATORVASTATIN 20 MG TABLET PO (08:14)
[2022-02-23] MEDS: LORATADINE 10 MG TABLET PO (08:14)
[2022-02-23] MEDS: INSULIN LISPRO 100 UNIT/ML 3ML VIAL SUBCUT ×2 (08:15→12:12)
[2022-02-23 12:31] VITALS: BP 121/71; PULSE 102; RESP 16; TEMP 36.7; O2SAT 99
--- NOTE | 2022-02-23 12:35 | PM.DS.1 ---
History of Present Illness History of Present Illness Chief complaint: Abd pain/bleeding, Hemoglobin of 8 per pt Narrative: Per history and physical from Dr. Wilson: Patient is very pleasant 61-year-old female who is followed at the [facility] for her primary care.? She is a history of non insulin-dependent type 2 diabetes, GERD, hypothyroidism and she presents to the emergency department with a 2 week progressive worsening history of shortness of breath with exertion, dizziness and this became more profound this week.? She states that on Thursday she started having black diarrhea stools with some red in it and Thursday as well.? She went to the emergency department due to the worsening dyspnea and fatigue and diarrhea stools and she was evaluated there and found to have guaiac-positive stools with anemia and CT scan was performed which showed mediastinal lymphadenopathy and suspicion for lymphoma.? This would be a new diagnosis.? They had intended to admit her to the hospital but apparently did not have a surgeon who could perform an EGD and so they arranged for her to have outpatient referrals for EGD as well as evaluation for possible lymphoma.? She has appointment for further imaging and appointments with [facility].? She then spoke with her PCP today who recommended she go to the ER at [facility] today.? She was noted to have a hemoglobin of 7.5 and had been 8 yesterday with melanotic stools that were guaiac positive and she was admitted to the hospital for further treatment of a presumed upper GI bleed.? The patient does have a history of reflux for which she takes omeprazole but it really does not bother her except for sometimes at night if she eats too close to going to bed.? She is had no worsening reflux.? She does take meloxicam for her shoulder and she did take it last night.? She is not had any abdominal pain.? She is not had any chest pain. Discharge Providers Provider Date of admission: 02/21/22 20:32 Discharge Date: 02/23/22 Primary care physician: KEVIN Mcdowell Consults: 02/21/22 20:24 Consult to General Surgery Stat Comment: Consulting Provider: Colin Lang Reason for consultation: GI bleed Has provider been notified: Yes 02/21/22 21:37 Consult to Physician Routine Comment: Consulting Provider: Colin Lang Reason for consultation: GI bleed Discharge provider: Ana Quezada MD Summary Hospital Course Discharge Diagnosis: 1. Upper GI bleed, secondary to duo deny disc, biopsy results pending 2. Acute blood loss anemia, stable 3. DELMER, resolved 4. Type 2 diabetes, stable 5. Multiple bilateral pulmonary nodules including extensive mediastinal and supraclavicular lymphadenopathy concerning for malignancy, further workup incoordinated by her primary care provider 6. Hypothyroidism 7. Hypertension 8. Hyperlipidemia 9. Depression/anxiety 10. Suspected right 7th rib fracture found on admission chest x-ray, no correlation on chest CT 11. Left lateral 10th rib deformity possibly secondary to old trauma versus disease process related Hospital Course: Patient was admitted after presenting to the emergency department complaining of black tarry stools with a hemoglobin of 7.5. She was previously seen at [facility] with similar complaints at which time her hemoglobin was 8.1. Chest CT done at [facility] revealed a bilateral pulmonary nodules with extensive mediastinal and supraclavicular lymphadenopathy. Recommendations were for outpatient follow-up with her PCP. PCP contacted the patient on February 21 and is coordinating a referrals to ENT regarding bilateral parotid gland enlargement seen on CT of the head and oncology regarding the pulmonary nodules and lymphadenopathy. She was also advised to come to [facility] for further evaluation of potential GI bleed. She was subsequently admitted. On admission her hemoglobin was 7.5. She received 1 unit of packed red blood cells. Hemoglobin improved to 7.8. She underwent EGD on February 22, 2022. Findings showed no active bleeding but evidence of duodenum I discussed. She had a colonoscopy in December which revealed polyps. She remained hemodynamically stable and on the date of discharge, her hemoglobin was stable at 7.8. Status at Discharge Cognitive/behavioral status at discharge: at baseline, oriented Functional status at discharge: independent ambulation Overall status at discharge: patient is progressing back to baseline Time Spent with Patient Time spent: Greater than 30 minutes (35 min) Exam Vital Signs (past 8 hours): - 02/23/22 08:00 02/23/22 12:31 Temperature 97.9 F 98.1 F Pulse Rate 99 H 102 H Respiratory Rate 16 16 Blood Pressure 115/77 121/71 Pulse Oximetry 96 99 Oxygen Delivery Method Room Air Oxygen Flow Rate 0 Narrative Exam Narrative: GEN: Alert and oriented x 3, NAD HEENT:NC, Face symmetric CHEST: Respiratory excursions symmetric, CTAB CV: Mildly tachycardic having just had a harsh cough, no M/R/G ABD: Soft, NT/ND, BT present in all 4 quadrants, no organomegaly or masses EXTR: warm, well perfused, no C/C/E SKIN: warm and dry, no rash NEURO: Alert and oriented x 3, nonfocal Objective Labs Result Diagrams: 02/23/22 12:20 02/22/22 05:25 [facility] Medical History Diabetes Gastroesophageal reflux disease Hypertension Hypothyroid Social History household members: spouse Smoking Status: Former smoker alcohol intake: current Discharge Plan Discharge Plan Patient Disposition: Home Provider Discharge Comment: Monitor your stool for any further black/tarry appearance, blood clots/maroon color. Return to the ED for recurrence. Do not take aspirin/ibuprofen/naproxen for the next 1 month. Stop meloxicam. Continue protonix (pantoprazole) twice daily. You should have follow up blood work done by your PCP in the next 2 weeks. F/u with your PCP for further referrals for evaluation of your bilateral lung nodules with lymph node enlargement - you will need a biopsy to obtain diagnosis and referral to oncology Please contact Dr. Lang's office or your PCP to get results from the biopsy done on your duodenum yesterday Discharge orders & Medications Prescriptions: New pantoprazole 40 mg tablet,delayed release (DR/EC) 40 mg PO BID Qty: 60 0RF Continued bupropion HCl 150 mg tablet extended release 24 hr 150 mg PO 1XD cetirizine 10 mg tablet 10 mg PO 1XD estradiol 1 mg tablet 1 mg PO 1XD losartan-hydrochlorothiazide 100-25 mg tablet 25 tab PO 1XD metformin 500 mg tablet extended release 24 hr 1,000 mg PO 1-2XD atorvastatin 20 mg tablet 20 mg PO DAILY levothyroxine [Synthroid] 50 mcg tablet 50 mcg PO DAILY Discontinued meloxicam 15 mg tablet 15 mg PO 1XD omeprazole 20 mg Capsule,Delayed Release(Dr/Ec) 20 mg PO DAILY Follow up/Referrals: Nusrat Kraus ARNP [Primary Care Provider] - Diet/Activity/Treatments Diet: Diet as Tolerated Activity: As tolerated Oxygen: N/A Visit Report/Discharge Packet Instructions: DI for Gastroesophageal Reflux Disease (GERD) Discharge Data Primary Care Provider: Nusrat Kraus VTE Deep Vein Thrombosis/Pulmonary Embolism Present on Admission: No
[2022-02-23 12:43] LABS: Add Manual Diff / Slide Review NO; Basophils Absolute Auto 0 /uL (0-100); Basophils Percent Auto 0.4 % (0-2); Eosinophils Absolute Auto 900 /uL (0-450); Eosinophils Percent Auto 8.8 % (2-4); Hematocrit 23.7 % (36-46); Hemoglobin 7.8 g/dL (12.0-16.0); Lymphocytes Absolute Auto 900 /uL (1100-4500); Lymphocytes Percent Auto 8.4 % (25-40); Mean Corpuscular HGB Conc 33.1 % (30-36); Mean Corpuscular Hemoglobin 28.7 PG (26-34); Mean Corpuscular Volume 86.8 fL (80-100); Monocytes Absolute Auto 900 /uL (0-900); Monocytes Percent Auto 8.8 % (3-14); Neutrophils Absolute Auto 7700 /uL (1500-7000); Neutrophils Percent Auto 73.6 % (50-75); Platelet Count 595 X10^3/uL (150-400); Red Blood Cell Count 2.73 X10^6/uL (4.0-5.2); Red Cell Distribution Width 13.7 % (11.6-14.8); White Blood Cell Count 10.5 X10^3/uL (4.5-11.0)
--- NOTE | 2022-02-23 13:59 | PC.NURSE ---
Discharge Note Patient A&O, VSS, RA, no complaints of pain/discomfort. Patient agreeable to discharge plan. Discharge packet reviewed with patient, all questions/concerns addressed. PIV/TELE discontinued. Patient able to dress self and pack all belongings. Patient taken down via wheelchair to POV.
== END 2022-02-23 14:00 | disposition home or self-care (01) ==
LOC: ED 20:26 → AC 02-22 11:00
PROVIDERS: Family Medicine; Surgery; Admitting Provider Family Medicine; Emergency Provider Emergency Medicine; PCP Nurse Practitioner Family; Referring Provider Emergency Medicine; Visit Provider Family Medicine
PROC: 0DJ08ZZ Inspection of Upper Intestinal Tract, Via Natural or Artificial Opening Endoscopic (ICD-10-PCS; CPT 43235; principal; 2022-02-22 14:30)
DX: K29.80 Duodenitis without bleeding (principal); R06.02 Shortness of breath; E11.9 Type 2 diabetes mellitus without complications; Z79.84 Long term (current) use of oral hypoglycemic drugs; K21.9 Gastro-esophageal reflux disease without esophagitis; I10 Essential (primary) hypertension; E03.9 Hypothyroidism, unspecified; Z20.822 Contact with and (suspected) exposure to COVID-19
CPT/HCPCS: 43239; 36415; 36430; 71045; 80053; 81001; 82550; 82962; 84484; 85025; 86850; 86900; 86901; 87635; 93005; 93010; 96361; 96372; 96374; 96376; 99218; 99283; 99284; C9803; G0378; P9016; C9113; J0330; J1815; J2405; J2704; J3010